=== PATIENT | female | born 1965 | race Caucasian/White ===

== ENCOUNTER 2018-06-28 07:25 | Emergency (ER) | payer OTHER ==
--- OUTSIDE RECORDS SUMMARY | 2018-06-28 07:32 | XMS REPORT | Continuity of Care Document ---
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 Active Onset: 09/30/2014 Presbyopia Emerson Donahue O.D. Active Onset: 09/30/2014 Hypermetropia Emerson Donahue O.D. 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 Active Family History Date Family Member(s) Problem(s) Comments General Heart Disease grandparents Father H/O: Hypertension Father Cancer Mother Cancer Social History Type Date Description Comments Sex Unknown ETOH Use Currently consumes alcohol Tobacco Use Start: Unknown Patient has never smoked Smoking Status Reviewed: 06/11/18 Patient has never smoked Allergies, Adverse Reactions, Alerts Date Description Reaction Status Severity Comments 09/30/2014 Seasonal Active Medications Description No Active Medications Immunizations Description No Information Available Vital Signs Date Vital Result Comment 06/11/2018 10:17am Intraocular Pressure Right Eye 18 mmHg Intraocular Pressure Left Eye 18 mmHg 01/30/2017 3:30pm Intraocular Pressure Right Eye 19 mmHg Intraocular Pressure Left Eye 18 mmHg 01/22/2016 10:47am Intraocular Pressure Right Eye 17 mmHg Intraocular Pressure Left Eye 17 mmHg 09/30/2014 10:46am Intraocular Pressure Right Eye 18 mmHg Intraocular Pressure Left Eye 18 mmHg Results Description No Information Available Procedures Date Code Description Status 06/11/2018 53394 Refraction Completed 06/11/2018 02918 Eye Exam Est Comprehensive Completed 02/20/2017 300 Contact Lens Fit NC Completed 02/13/2017 303 Contact Lens Fit $125 Completed 01/30/2017 87054 Refraction Completed 01/30/2017 44524 Eye Exam Est Intermediate Completed 01/22/2016 44583 Refraction Completed 01/22/2016 55417 Eye Exam Est Intermediate Completed 09/30/2014 38582 Refraction Completed 09/30/2014 40601 Eye Exam Est Comprehensive Completed Encounters Description No Information Available Plan of Treatment 06/11/2018 - Emerson Bernal, ODH04.123 Dry eye syndrome of bilateral lacrimal [id number] Hypermetropia, bilateralFollow up:yearly full, sooner PRN
[2018-06-28 07:35] VITALS: BP 123/86
--- NOTE | 2018-06-28 08:14 | UC ---
Complaint Female HPI - HPI Summary HPI Summary: 52-year-old woman comes to clinic today with a chief complaint of urinary frequency urgency and dysuria. His been going on for 2 days. Pains worse with urination it's less when she is not urinating. She goes multiple times with small volumes. No fevers or chills no flank pain no abdominal pain. Her last period was a year ago no concern of a sexually transmitted infection. She did have some blood when she was urinating overnight. - History Of Current Complaint Chief Complaint: UCGI Stated Complaint: URGENCY/BURNING W/ URINATION Time Seen by Provider: 06/28/18 07:38 Pain Intensity: 0 - Allergies/Home Medications Allergies/Adverse Reactions: Allergies Allergy/AdvReac Type Severity Reaction Status Date / Time No Known Allergies Allergy Verified 06/28/18 07:35 Home Medications: Home Medications diPHENhydraMINE PO* [Benadryl PO 25 MG TAB*] 25 mg PO BEDTIME PRN 06/28/18 [ History Confirmed 06/28/18] PMH/Surg Hx/FS Hx/Imm Hx Previously Healthy: Yes - Surgical History Surgical History: None - Family History Known Family History: Positive: Non-Contributory - Social History Alcohol Use: Daily Substance Use Type: None Smoking Status (MU): Never Smoked Tobacco Review of Systems All Other Systems Reviewed And Are Negative: Yes Constitutional: Positive: Negative Skin: Positive: Negative Eyes: Positive: Negative ENT: Positive: Negative Respiratory: Positive: Negative Cardiovascular: Positive: Negative Gastrointestinal: Positive: Negative Genitourinary: Positive: Dysuria, Hematuria, Frequency, Urgency. Negative: Vaginal/Penile Discharge Motor: Positive: Negative Neurovascular: Positive: Negative Musculoskeletal: Positive: Negative Neurological: Positive: Negative Psychological: Positive: Negative Is Patient Immunocompromised?: No Physical Exam Triage Information Reviewed: Yes Appearance: Well-Appearing, No Pain Distress, Well-Nourished Vital Signs: Initial Vital Signs Temp 98.7 F 06/28/18 07:28 Pulse 83 06/28/18 07:28 Resp 14 06/28/18 07:28 BP 123/86 06/28/18 07:28 Pulse Ox 98 06/28/18 07:28 Vital Signs Reviewed: Yes Eye Exam: Normal Eyes: Positive: Conjunctiva Clear Neck exam: Normal Neck: Positive: Supple Respiratory Exam: Normal Respiratory: Positive: Lungs clear, Normal breath sounds, No respiratory distress Cardiovascular: Positive: RRR Abdomen Description: Positive: Nontender, Soft. Negative: CVA Tenderness (R), CVA Tenderness (L) Musculoskeletal Exam: Normal Musculoskeletal: Positive: Strength Intact, ROM Intact Neurological Exam: Normal Neurological: Positive: Alert, Muscle Tone Normal Psychological Exam: Normal Psychological: Positive: Age Appropriate Behavior Skin Exam: Normal Complaint Female Dx - Differential Dx/Diagnosis Provider Diagnosis: UTI (urinary tract infection) Discharge - Sign-Out/Discharge Documenting (check all that apply): Patient Departure All imaging exams completed and their final reports reviewed: No Studies - Discharge Plan Condition: Stable Disposition: HOME Prescriptions: Cephalexin CAP* [Keflex CAP*] 500 mg PO TID #21 cap Patient Education Materials: Urinary Tract Infection in Women (ED) Referrals: [facility] [place] [facility] [Outside] Additional Instructions: FOLLOW UP WITH YOUR DOCTOR IF NOT COMPLETELY IMPROVED. GET RECHECKED FOR ANY WORSENING OF YOUR CONDITION OR QUESTIONS OR CONCERNS. - Billing Disposition and Condition Condition: STABLE Disposition: Home
--- NOTE | 2018-06-29 16:45 | UC ---
- Progress Note Progress Note: urine + E Coli on keflex await sensitivity [email or web address] 06/29/18 Course/Dx - Diagnoses Provider Diagnoses: UTI (urinary tract infection) Discharge - Sign-Out/Discharge Documenting (check all that apply): Post-Discharge Follow Up All imaging exams completed and their final reports reviewed: No Studies - Discharge Plan Condition: Stable Disposition: HOME Prescriptions: Cephalexin CAP* [Keflex CAP*] 500 mg PO TID #21 cap Ondansetron ODT TAB* [Zofran 4 MG Odt TAB*] 4 mg PO Q6H PRN #10 tab.odt PRN Reason: Nausea Patient Education Materials: Urinary Tract Infection in Women (ED) [place]: [facility] [place] [facility] [[place]] Additional Instructions: FOLLOW UP WITH YOUR DOCTOR IF NOT COMPLETELY IMPROVED. GET RECHECKED FOR ANY WORSENING OF YOUR CONDITION OR QUESTIONS OR CONCERNS. - Billing Disposition and Condition Condition: STABLE Disposition: Home
--- NOTE | 2018-06-30 15:56 | UC ---
- Progress Note Progress Note: 06/30/2018 Urine culture positive for E.Coli Pt Rx Keflex PO Final report shows sensitivity for Keflex No change Olive Zuluaga PA-C Course/Dx - Diagnoses Provider Diagnoses: UTI (urinary tract infection) Discharge - Sign-Out/Discharge Documenting (check all that apply): Patient Departure - D/C home All imaging exams completed and their final reports reviewed: No Studies - Discharge Plan Condition: Stable Disposition: HOME Prescriptions: Cephalexin CAP* [Keflex CAP*] 500 mg PO TID #21 cap Ondansetron ODT TAB* [Zofran 4 MG Odt TAB*] 4 mg PO Q6H PRN #10 tab.odt PRN Reason: Nausea Patient Education Materials: Urinary Tract Infection in Women (ED) [place] [facility] [place] [facility] [place]] Additional Instructions: FOLLOW UP WITH YOUR DOCTOR IF NOT COMPLETELY IMPROVED. GET RECHECKED FOR ANY WORSENING OF YOUR CONDITION OR QUESTIONS OR CONCERNS. - Billing Disposition and Condition Condition: STABLE Disposition: Home
== END 2018-06-28 08:39 | disposition home or self-care (01) ==
LOC: UCEAST 07:25
DX: N39.0 Urinary tract infection, site not specified (principal); B96.20 Unspecified Escherichia coli [E. coli] as the cause of diseases classified elsewhere
CPT/HCPCS: 81003; 87077; 87086; 87186; 99212; G0463